=== PATIENT | female | born 1935 | race Caucasian/White ===

== ENCOUNTER → 2020-08-16 | Outpatient (CLI) | payer MEDICARE ==
--- NOTE | 2020-08-16 14:29 | Diagnostic Imaging Report ---
Right hip, 2 views INDICATION: ^Unilateral primary osteoarthritis, right hip Comparison: None available. Discussion: Severe osteoarthritic changes of the right hip are noted including severe disc space narrowing with periarticular sclerosis and large osteophytes, especially inferiorly. Lateral acetabular hanging osteophytes are noted. Negative for acute displaced fracture or dislocation. Pubic symphysis is not widened. IMPRESSION: Severe right hip osteophytic change. Signed by: Julio Dixon MD on 08/16/2020 2:25 PM
== END ==
LOC: RAD 13:34
PROVIDERS: ATTEND Internal Medicine
DX: M16.11 Unilateral primary osteoarthritis, right hip (principal)

== ENCOUNTER → 2021-02-05 | Outpatient (CLI) | payer MEDICARE | LOC: RAD 13:28 | PROVIDERS: ATTEND Internal Medicine | DX: Z01.810 Encounter for preprocedural cardiovascular examination (principal) | CPT/HCPCS: 71046 ==

== ENCOUNTER 2021-03-04 09:29 | Observation (INO) | payer MEDICARE ==
[~2021-03-04] VITALS: Ht 162.6 cm; Wt 72.6 kg
[~2021-03-04 09:29] MED LIST: AMLODIPINE BESY10 MG PO; ASPIRIN CHEW81 MG PO; ATORVASTATIN CA20 MG PO; BENICAR20 MG PO; BUPIVACAINE 7.5MG/ML /DEXTROSE 82.5MG/ML 2 ML AMP INJ ONE; CEFAZOLIN SOD 1 GM/NS 50ML 100 ML IV ONE; CELECOXIB 200 MG CAP ONE; DEXAMETHASONE SOD PHOS 10 MG/1 ML VIAL ONE; GABAPENTIN 300 MG CAP ONE; ROPIVACAINE 246.25 MG, EPINEPHRINE HCL 1:1000 1ML 0.5 MG, CLONIDINE HCL 0.08 MG, KETORO... INJ ONE; SODIUM CHLORIDE 0.9% 500ML 500 ML ONE; TRANEXAMIC ACID 1,000 MG/10 ML ML ONE; VANCOMYCIN HCL 1,000 MG ONE
[2021-03-04] MEDS ORDERED: DIPHENHYDRAMINE HCL INJ 50 MG/ML VIAL IV PRN (10:00)
[2021-03-04] MEDS ORDERED: KETOROLAC TROMETHAMINE 30 MG/ML VIAL IV PRN (10:00)
[2021-03-04] MEDS ORDERED: ONDANSETRON HCL INJ 2MG/ML 2ML 2 MG/ML VIAL IV PRN (10:00)
[2021-03-04] MEDS ORDERED: HYDROCODONE/APAP 5MG-325MG TAB PO PRN (10:00)
[2021-03-04] MEDS ORDERED: HYDROCODONE/APAP 7.5MG-325MG 1 EA TAB PO PRN (10:00)
[2021-03-04] MEDS ORDERED: ACETAMINOPHEN 650 MG SUPP PR PRN (10:00)
[2021-03-04] MEDS ORDERED: DOCUSATE SODIUM 100 MG CAP PO PRN (10:00)
[2021-03-04] MEDS ORDERED: ONDANSETRON HCL INJ 2MG/ML 2ML 2 MG/ML VIAL ONE (11:46)
[2021-03-04] MEDS ORDERED: GLYCOPYRROLATE INJ 0.2 MG/ML VIAL ONE (11:46)
[2021-03-04] MEDS ORDERED: PROPOFOL IV EMULSION 10 MG/ML 20 ML VIAL ONE (11:46)
[2021-03-04] MEDS ORDERED: ROCURONIUM BROMIDE 10 MG/ML 5ML VIAL IV ONE (11:46)
[2021-03-04] MEDS ORDERED: DEXAMETHASONE SOD PHOS INJ 4 MG/ML VIAL ONE (11:46)
[2021-03-04] MEDS ORDERED: SEVOFLURANE INHAL SOLN 250 ML PEN BTL ONE (11:46)
[2021-03-04] MEDS ORDERED: EPHEDRINE SULFATE INJ 50 MG/ML VIAL ONE (11:46)
[2021-03-04] MEDS ORDERED: POVIDONE IODINE 0.05% 0.05 % ML PO ONE (11:46)
[2021-03-04] MEDS ORDERED: NEOSTIGMINE 1 MG/ML 10ML VIAL ONE (11:46)
[2021-03-04] MEDS ORDERED: LIDOCAINE HCL 2% LOCAL INJ 5 ML SDV VIAL INJ ONE (11:46)
[2021-03-04] MEDS: SODIUM CHLORIDE 0.9% 1000ML 1,000 ML IV SCH ×2 (11:55→20:00)
[2021-03-04 11:58] VITALS: BP 111/40
[2021-03-04] MEDS ORDERED: ACETAMINOPHEN 1000 MG/100 ML IV PRN (12:00)
[2021-03-04 12:01] VITALS: BP 111/40
[2021-03-04 12:02] VITALS: BP 111/40
[2021-03-04 16:30] VITALS: BP 104/65
[2021-03-04] MEDS: CELECOXIB 100 MG CAP PO SCH (17:07)
[2021-03-04] MEDS: CEFAZOLIN SOD 1 GM/NS 50ML 50 ML IV SCH (17:07)
[2021-03-04] MEDS: ASPIRIN 325 MG TAB PO SCH (17:07)
[2021-03-04 20:00] VITALS: BP 108/54
[2021-03-04 20:38] VITALS: BP 108/54
[2021-03-04] MEDS ORDERED: ZOLPIDEM TARTRATE 5 MG TAB PO PRN (21:00)
[2021-03-05] VITALS: BP 138/66
[2021-03-05] MEDS: CEFAZOLIN SOD 1 GM/NS 50ML 50 ML IV SCH ×2 (01:14→10:05)
[2021-03-05 04:00] VITALS: BP 138/68
[2021-03-05 05:25] LABS: BASOPHILS % 0.2 % (0.0-1.0); HEMATOCRIT 32.2 % (34.2-44.1); HEMOGLOBIN 11.2 g/dL (12.0-16.0); LYMPHOCYTES # (AUTO) 0.8 (1.0-3.2); LYMPHOCYTES % 5.3 % (18.0-39.1); MEAN CORPUSCULAR HEMOGLOBIN 30.3 pg (28-32); MEAN CORPUSCULAR HGB CONC 34.8 g/dL (31-35); MONOCYTES # (AUTO) 1.2 (0.2-0.8); MONOCYTES % 7.5 % (4.4-11.3); NEUTROPHILS # (AUTO) 13.3 (2.1-6.9); NEUTROPHILS % 86.4 % (38.7-80.0); PLATELET COUNT 180 x10e3/uL (140-360); RED CELL DISTRIBUTION WIDTH 13.5 % (11.7-14.4)
[2021-03-05 06:09] LABS: ALANINE AMINOTRANSFERASE 21 IU/L (0-55); ALBUMIN 3.2 g/dL (3.5-5.0); ALBUMIN/GLOBULIN RATIO 1.2 (0.8-2.0); ALKALINE PHOSPHATASE 61 IU/L (40-150); ANION GAP 14.1 mmol/L (8-16); BLOOD UREA NITROGEN 26 mg/dL (7-26); BUN/CREATININE RATIO 30 (6-25); CALCIUM 8.3 mg/dL (8.4-10.2); CARBON DIOXIDE 22 mmol/L (22-29); CHLORIDE 100 mmol/L (98-107); CREATININE, SERUM 0.88 mg/dL (0.57-1.11); EST GLOMERULAR FILTRATION RATE > 60 ML/MIN (60-); GLUCOSE 146 mg/dL (74-118); POTASSIUM 4.1 mmol/L (3.5-5.1); SODIUM 132 mmol/L (136-145)
[2021-03-05 07:48] VITALS: BP 131/63
[2021-03-05 08:48] VITALS: BP 131/63
[2021-03-05] MEDS: ASPIRIN 325 MG TAB PO SCH (10:05)
[2021-03-05] MEDS: CELECOXIB 100 MG CAP PO SCH (10:05)
[2021-03-05 11:48] VITALS: BP 144/65
[2021-03-05] MEDS ORDERED: ONDANSETRON HCL 4 MG ORAL DISINTEGRATING TAB PO PRN (13:00)
[2021-03-05] MEDS ORDERED: CELECOXIB 200 MG CAP PO SCH (17:00)
== END 2021-03-05 13:55 | disposition home health service (06) ==
LOC: OR 09:29 → PACU V 10:00 → MED/SURG 11:08
PROVIDERS: ADMIT Specialist; ATTEND Specialist
DX: M16.11 Unilateral primary osteoarthritis, right hip (principal); I11.9 Hypertensive heart disease without heart failure; E78.00 Pure hypercholesterolemia, unspecified; Z01.812 Encounter for preprocedural laboratory examination; Z20.822 Contact with and (suspected) exposure to COVID-19; R33.9 Retention of urine, unspecified; E78.5 Hyperlipidemia, unspecified
CPT/HCPCS: 27130; 36415; 72170; 80053; 85025; 86850; 86900; 86920; 97110; 97116 ×2; 97139; 97161; 97530; G0378 ×2; J0171; J0690 ×2; J1100; J1885; J2405; J2795; J3370; J7030; J7040; U0002; C1713; C1776; J2001; J2710

== ENCOUNTER → 2021-05-21 | Outpatient (CLI) | payer MEDICARE ==
[~2021-05-21] MED LIST changes: -BUPIVACAINE 7.5MG/ML /DEXTROSE 82.5MG/ML 2 ML AMP INJ ONE; -CEFAZOLIN SOD 1 GM/NS 50ML 100 ML IV ONE; -CELECOXIB 200 MG CAP ONE; -DEXAMETHASONE SOD PHOS 10 MG/1 ML VIAL ONE; -GABAPENTIN 300 MG CAP ONE; -ROPIVACAINE 246.25 MG, EPINEPHRINE HCL 1:1000 1ML 0.5 MG, CLONIDINE HCL 0.08 MG, KETORO... INJ ONE; -SODIUM CHLORIDE 0.9% 500ML 500 ML ONE; -TRANEXAMIC ACID 1,000 MG/10 ML ML ONE; -VANCOMYCIN HCL 1,000 MG ONE
== END ==
LOC: US 10:49
PROVIDERS: ATTEND Urology
DX: R39.14 Feeling of incomplete bladder emptying (principal); R33.9 Retention of urine, unspecified; Z85.528 Personal history of other malignant neoplasm of kidney
CPT/HCPCS: 76770; 76857

== ENCOUNTER → 2022-08-27 | Outpatient (CLI) | payer MEDICARE | LOC: CT 13:18 | PROVIDERS: ATTEND Internal Medicine | DX: G44.52 New daily persistent headache (NDPH) (principal); M54.9 Dorsalgia, unspecified | CPT/HCPCS: 70450 ==

== ENCOUNTER → 2024-05-31 | Outpatient (REF) | payer MEDICARE | LOC: RAD 10:30 | PROVIDERS: ATTEND Internal Medicine | DX: I50.32 Chronic diastolic (congestive) heart failure (principal); I35.1 Nonrheumatic aortic (valve) insufficiency | CPT/HCPCS: 93306 ==

== ENCOUNTER 2025-08-07 09:42 | Emergency (ER) | payer MEDICARE ==
[~2025-08-07] VITALS: Ht 162.6 cm; Wt 72.6 kg
[2025-08-07 10:42] VITALS: PULSE 68; RESP 17; TEMP 97.8; O2SAT 100
[2025-08-07 12:00] VITALS: BP 164/71
== END 2025-08-07 12:01 | disposition home or self-care (01) ==
LOC: ER 10:53
DX: R04.0 Epistaxis (principal); I10 Essential (primary) hypertension; E78.5 Hyperlipidemia, unspecified; Z79.82 Long term (current) use of aspirin; Z96.659 Presence of unspecified artificial knee joint
CPT/HCPCS: 99282